=== PATIENT | female | born 2000 | race Two or more races ===

== ENCOUNTER → 2023-03-13 14:16 | Outpatient (BNVA) | payer SELFPAY | PROVIDERS: PCP Pediatrics ==

== ENCOUNTER 2024-08-16 22:56 | Emergency (ER) | payer OTHER, SELFPAY ==
[2024-08-16 23:08] VITALS: BP 108/61; PULSE 104; RESP 18; TEMP 37.1; O2SAT 98; BMI 20.4
[2024-08-16 23:24] LABS: Basophils Percent Auto 0.2 % (0-2); Eosinophils Percent Auto 0.2 % (0-4); Hematocrit 41.8 % (37.0-47.0); Hemoglobin 13.7 g/dl (12.0-16.0); Imm Gran Abs Auto 0.03 X10*3/uL (0.00-0.03); Imm Gran Pct Auto 0.2 % (0.0-0.4); Lymphocytes Absolute Auto 0.5 X10*3/uL (1.2-4.9); Lymphocytes Percent Auto 4.1 % (20-40); Mean Corpuscular HGB Conc 32.8 g/dl (31.0-35.0); Mean Corpuscular Hemoglobin 26.8 pg (27.0-33.0); Mean Corpuscular Volume 81.8 fL (80.0-98.0); Mean Platelet Volume 11.2 fL (9.4-12.3); Monocytes Absolute Auto 0.6 X10*3/uL (0.1-1.2); Monocytes Percent Auto 4.7 % (2-11); Neutrophils Absolute Auto 11.7 x10*3/uL (2.0-8.3); Neutrophils Percent Auto 90.6 % (45-73); Platelet Count 224 X10*3/uL (160-400); Red Blood Count 5.11 X10*6/uL (4.20-5.50); Red Cell Distribution Width 12.5 % (11.0-16.0); SCAN SMEAR FLAG 1; White Blood Count 12.9 X10*3/uL (4.8-10.8)
[2024-08-16 23:26] LABS: MANUAL DIFF FLAG SCAN
[2024-08-16 23:41] LABS: SLIDE REVIEW VERIFIED
[2024-08-16 23:49] LABS: Alanine Aminotransferase 11 U/L (0-31); Albumin Level 4.4 g/dL (3.5-5.0); Alkaline Phosphatase 37 U/L (39-117); Anion Gap 13 (12-20); Aspartate Amino Transferase 24 U/L (5-31); Bilirubin Total 0.5 mg/dL (0.0-1.0); Blood Urea Nitrogen 20 mg/dL (9-16); Calcium 9.1 mg/dL (8.4-10.2); Carbon Dioxide 24 mmol/L (22-29); Chloride 106 mmol/L (96-108); Creatinine Clr Calc Pharmacy 103.4; Estimated Glomerular Filt Rate > 60; Glucose Random 136 mg/dL (60-115); HCG Quantitative < 2 mIU/mL; Lipase 18 U/L (8-78); Potassium 3.7 mmol/L (3.3-5.1); Sodium 139 mmol/L (135-145); Total Protein 7.3 g/dL (6.5-8.0)
--- NOTE | 2024-08-16 23:54 | ED_ITS ---
HPI - Nausea/Vomiting/Diarrhea General Chief complaint: Nausea/Vomiting/Diarrhea Stated complaint: vomiting, diarrhea Time Seen by Provider: 08/16/24 23:53 Source: patient and family (Parents) Mode of arrival: ambulatory Limitations: no limitations History of Present Illness ED Provider: Dr. Bimal East HPI Narrative: 23-year-old female with no significant past medical history who presents emergency department for evaluation of headache, nausea, vomiting, diarrhea and left leg pain. Patient states that her symptoms started around 19:00 hours when she came home from work. She had a frontal headache which she describes as a pounding sensation. She was had similar headaches in the past. She then developed nausea, vomiting and diarrhea. She states she had 9 episodes of vomiting and 6 episodes of diarrhea. She had no blood in the emesis or the diarrhea. Patient states that she was having pain in her left thigh which she describes as a throbbing sensation which is worse with movement. She denied fever, chills, rhinorrhea, sore throat, cough, chest pain, shortness of breath. She denied frequency, urgency or dysuria. Related Data Previous Rx's ?Medication ?Instructions ?Recorded ondansetron 4 mg disintegrating 4 mg PO Q6-8H PRN nausea and 08/17/24 tablet vomiting #14 tabs Allergies Allergy/AdvReac Type Severity Reaction Status Date / Time No Known Allergies Allergy Verified 08/16/24 23:08 [No Known Allergies*] Review of Systems 2 Review of Systems: Yes all other systems are reviewed and are negative [facility] Past Medical History [facility] Narrative: Social history: Patient denies tobacco, alcohol and drug use Social History Social History Advance Directives: No Advance Directives Information Provided: Yes Do you have a plan to hurt others: No Plan Physical Exam 2 Vital Signs: Vital Signs: Last Vital Signs Temp 98.8 F 08/16/24 23:08 Pulse 104 H 08/16/24 23:08 Resp 18 08/16/24 23:08 BP 108/61 08/16/24 23:08 Pulse Ox 98 08/16/24 23:08 O2 Del Method Room Air 08/16/24 23:08 BMI result Body Mass Index 20.4 Patient had an elevated heart rate of 104, otherwise vital signs were unremarkable Exam: General: Awake, alert in no distress Head: Normocephalic, atraumatic EENT: PERRL, Lids normal, sclera normal, conjunctiva normal, nose normal , ears normal, throat without erythema or exudates Neck: Supple, no adenopathy Lung: breath sounds symmetric, no wheezing, rales or rhonchi Chest: symmetric movement, nontender Heart: regular rate and rhythm, normal S1, S2 no murmurs or rubs Abdomen: soft, mild to moderate diffuse tenderness with no localizing tenderness, nondistended, normal bowel sounds, no voluntary or involuntary guarding Back: no vertebral tenderness, no CVAT Extremities: no deformities, moves all extremities symmetrically. Patient's skin exam revealed no erythema or increased warmth, she was no tenderness with palpation of the muscles of her lower extremities. There is no increased warmth or joint effusions noted. Neuro: Awake, alert, oriented, normal speech, cranial nerves intact, moves all extremities symmetrically Psych: Pleasant, cooperative Medications Administered Discontinued Medications Generic Name Dose Route Start Last Admin Trade Name Freq PRN Reason Stop Dose Admin Sodium Chloride 1,000 mls @ 999 mls/hr 08/17/24 00:06 08/17/24 01:52 Ns IV 08/17/24 01:06 Infused .Q1H1M STA Infusion Ketorolac Tromethamine 15 mg 08/17/24 00:06 08/17/24 00:27 Ketorolac Tromethamine 15 Mg/Ml Vial IVPUSH 08/17/24 00:07 15 mg ONCE STA Administration Ondansetron HCl 4 mg 08/17/24 00:06 08/17/24 00:26 Ondansetron Hcl 4 Mg/2 Ml Vial IVPUSH 08/17/24 00:07 4 mg ONCE ONE Administration Medical Decision Making Medical Decision Making [facility] Narrative: 23-year-old female with no significant past medical history who presents emergency department for evaluation of headache, nausea, vomiting, diarrhea and left leg pain with symptoms beginning at 19:00 hours. The patient was had 9 episodes of vomiting and 6 episodes of diarrhea with no blood in the emesis or diarrhea. Vital signs revealed an elevated heart rate otherwise unremarkable. Physical examination did reveal mild to moderate diffuse abdominal tenderness with no localizing tenderness. Patient had no significant abnormal findings over lower extremities. Differential diagnosis: ?Includes but is not limited to viral syndrome, gastroenteritis, COVID-19, influenza, RSV, myalgias, arthralgias, electrolyte abnormalities, anemia Course: 01:13 My interpretation patient's laboratory evaluation as follows: WBC elevated 12,900. BUN elevated 20. Glucose elevated 136. LFTs were normal. Lipase was normal. Quantitative beta-hCG was below detectable limits. COVID-19, influenza and RSV tests were negative. Patient was treated with normal saline IV 1 times 1 L, Toradol 15 mg IV and Zofran 4 mg IV. 02:16 Patient feeling see active after the above treatment. The patient was able to eat crackers and drink leann neto without vomiting. Patient most likely has an acute viral syndrome causing her vomiting and diarrhea. Patient she was discharged home with a prescription for Zofran 4 mg ODT. She was advised to take Tylenol and ibuprofen for pain. She was advised to stay on a FREDRICK diet. She was given printed and verbal instructions and discharged home I did re-evaluate the patient's left leg. The patient has no erythema, increased warmth or significant tenderness. I believe that the pain is most likely related to her viral syndrome, I doubt that she was necrotizing fasciitis at this time based on her negative findings. Admission/Observation Consideration of admission/observation: Escalation of care including admission/observation considered (Yes) Lab Data MDM Lab Attestation statement: I reviewed the patient's lab results. 08/16/24 23:19 08/16/24 23:19 Labs: Lab Results 08/16/24 Range/Units 23:19 WBC 12.9 H (4.8-10.8) X10*3/uL RBC 5.11 (4.20-5.50) X10*6/uL Hgb 13.7 (12.0-16.0) g/dl Hct 41.8 (37.0-47.0) % MCV 81.8 (80.0-98.0) fL MCH 26.8 L (27.0-33.0) pg MCHC 32.8 (31.0-35.0) g/dl RDW 12.5 (11.0-16.0) % Plt Count 224 (160-400) X10*3/uL MPV 11.2 (9.4-12.3) fL Immature Gran % (Auto) 0.2 (0.0-0.4) % Neut % (Auto) 90.6 H (45-73) % Lymph % (Auto) 4.1 L (20-40) % [place] % (Auto) 4.7 (2-11) % Eos % (Auto) 0.2 (0-4) % Baso % (Auto) 0.2 (0-2) % Lymph # (Auto) 0.5 L (1.2-4.9) X10*3/uL [place] # (Auto) 0.6 (0.1-1.2) X10*3/uL Eos # (Auto) 0.0 (0.0-0.4) X10*3/uL Baso # (Auto) 0.0 (0.0-0.2) X10*3/uL Abs Immat Gran (auto) 0.03 (0.00-0.03) X10*3/uL Absolute Neuts (auto) 11.7 H (2.0-8.3) x10*3/uL Absolute Nucleated RBC 0.000 (0.0-0.012) X10*3/uL Nucleated RBC % (auto) 0.0 (0.0-0.2) /100WBC Smear Tech's Comments VERIFIED Sodium 139 (135-145) mmol/L Potassium 3.7 (3.3-5.1) mmol/L Chloride 106 (96-108) mmol/L Carbon Dioxide 24 (22-29) mmol/L Anion Gap 13 (12-20) BUN 20 H (9-16) mg/dL Creatinine 0.71 (0.5-1.4) mg/dL Estim Creat Clear Calc 103.4 Estimated GFR > 60 Random Glucose 136 H (60-115) mg/dL Calcium 9.1 (8.4-10.2) mg/dL Total Bilirubin 0.5 (0.0-1.0) mg/dL AST 24 (5-31) U/L ALT 11 (0-31) U/L Alkaline Phosphatase 37 L (39-117) U/L Total Protein 7.3 (6.5-8.0) g/dL Albumin 4.4 (3.5-5.0) g/dL Lipase 18 (8-78) U/L Beta HCG, Quant < 2 mIU/mL Influenza Type A (PCR) NEGATIVE (Negative) Influenza Type B (PCR) NEGATIVE (Negative) RSV RNA Qual (PCR) NEGATIVE (Negative) SARS-CoV-2 RNA (RT-PCR) NEGATIVE (Negative) Independent Historian Clinical information obtained from an independent historian. History obtained from or confirmed by: Parent (Mother and father) Prescription Management I considered prescription management with: Other (Antiemetic: Zofran ODT) Discharge Plan Discharge Clinical Impression: Viral syndrome, Nausea & vomiting, Abdominal pain, Left thigh pain Patient Disposition: Home, Self-Care Instructions: Viral Syndrome (ED) Additional Instructions: Your blood work did reveal an elevated white blood cell count otherwise there were no significant findings which is reassuring. Your COVID-19, RSV and influenza tests were negative. Take ibuprofen 200 mg pills, 2 pills every 6 hours as needed for pain or fever. Take Tylenol (acetaminophen) 500 mg pills, 2 pills every 6 hours as needed for pain or fever. Take Zofran ODT 4 mg pills, 1 pill dissolved in your mouth every 8 hours as needed for nausea and vomiting. For diarrhea I want you to take Imodium 2 mg pills. ?Take 2 pills after the 1st loose, diarrheal stool then 1 pill after each loose, diarrheal stool up to 8 pills per day. ?This usually stops diarrhea within 24 hours. For the next 24 hours, stay on a FREDRICK diet (bananas, rice, applesauce, tea and toast). Follow-up with your doctor in 2 days. Please return to the emergency department if your symptoms get worse or if you develop any symptoms that are concerning to you. Prescriptions: New ondansetron 4 mg tablet,disintegrating 4 mg PO Q6-8H PRN (Reason: nausea and vomiting) Qty: 14 0RF Stand Alone Forms: Work/School Release Print Language: Sinhala
[2024-08-17 00:01] LABS: Influenza A PCR NEGATIVE (Negative); Influenza B PCR NEGATIVE (Negative); Resp Syncy Virus RNA Qual PCR NEGATIVE (Negative); SARS COV2 PCR INHOUSE NEGATIVE (Negative)
[2024-08-17] MEDS: ondansetron HCL 4 MG/2 ML VIAL IVPUSH ×2 (00:26→02:42)
[2024-08-17] MEDS: Ketorolac Tromethamine 15 MG/ML VIAL IVPUSH (00:27)
[2024-08-17] MEDS: 0.9 % Sodium Chloride 1,000 ML 999 ML IV (00:29)
--- NOTE | 2024-08-17 01:52 | PC.NURSE ---
pt attempting po trial now
[2024-08-17] MEDS: Loperamide HCl 2 MG CAPSULE 4 MG PO (02:42)
[2024-08-17 02:47] VITALS: BP 100/59; PULSE 90; RESP 16; TEMP 36.8; O2SAT 98
[2024-08-17 02:58] VITALS: BP 100/59; PULSE 90; RESP 16; TEMP 36.8; O2SAT 98
== END 2024-08-17 02:59 | disposition home or self-care (01) ==
PROVIDERS: Emergency Provider Emergency Medicine Emergency Medical Services; PCP Internal Medicine
DX: B34.9 Viral infection, unspecified (principal); R51.9 Headache, unspecified; R11.2 Nausea with vomiting, unspecified; R19.7 Diarrhea, unspecified; M79.605 Pain in left leg; Z03.818 Encounter for observation for suspected exposure to other biological agents ruled out
CPT/HCPCS: 0241U; 80053; 83690; 84702; 85025; 96361; 96374; 96375; 96376; 99284; J1885; J2405